=== PATIENT | male | born 1970 | race Caucasian/White ===

== ENCOUNTER 2020-03-28 21:00 | Emergency (ER) | payer OTHER ==
[2020-03-28 21:08] VITALS: TEMP 97.8; BMI 36.0
[2020-03-28] MEDS ORDERED: ACETAMINOPHEN 325 MG TABLET (FP) PO ONE (22:20)
--- NOTE | 2020-03-28 22:20 | PDOC ---
History of Present Illness - General Chief Complaint: Blood Pressure Problem Stated Complaint: LT KNEE PAIN/ BP prob Time Seen by Provider: 03/28/20 21:25 History Source: Patient Exam Limitations: No Limitations - History of Present Illness Initial Comments: 03/28/20 22:19 50M PMH gout presenting with atraumatic left knee pain x1 week. Has been worsening. pain especially of the lateral aspect of the knee. no bites, f/c. Pt denies strenuous activity or abnormal movements of the leg. he states this pain is similar to a prior episode of gout but lasting longer. 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 States high BP at triage but is currently asymptomatic; denies headache, vision/hearing changes, numbness, tingling, weakness, cp/sob, n/v/d, abd pain. NKA; poor medical f/u. accompanied by Past History - Medical History Allergies/Adverse Reactions: Allergies Allergy/AdvReac Type Severity Reaction Status Date / Time No Known Allergies Allergy Verified 03/28/20 22:41 COPD: No - Psycho-Social/Smoking History Smoking History: Never smoked - Substance Abuse Hx (Audit-C & DAST Scrn) How often the patient has a drink containing alcohol: Monthly or less Number of drinks the patient has on a typical day: 1 or 2 How often the patient has six or more drinks on one occasion: Less than monthly Score: In Men: 4 or > Positive; In Women: 3 or > Positive: 2 Screen Result (Pos requires Nsg. Audit-10AR): Negative In the last yr the pt used illegal drug/Rx for NonMed reason: No Score: Yes response is considered Positive: 0 Screen Result (Positive result requires Nsg. DAST-10): Negative Review of Systems - Review of Systems Comments:: 03/29/20 02:12 CONSTITUTIONAL: Denies F / C HEENT: Denies headache, lightheadedness, dizziness, changes in vision / hearing, sore throat, rhinorrhea RESP: Denies SOB, cough CARD: Denies chest pain, palpitations GI: Denies N / V / D, abdominal pain, inability to tolerate PO : Denies dysuria, hematuria, frequency NEURO: Denies numbness, tingling, weakness MSK: + left knee pain SKIN: Denies rashes *Physical Exam - Vital Signs Last Vital Signs Temp Pulse Resp BP Pulse Ox 97.8 F 99 H 19 150/107 H 99 03/28/20 21:04 03/28/20 21:04 03/28/20 21:04 03/28/20 21:04 03/28/20 21:04 - Physical Exam 03/29/20 02:12 GEN: nontoxic appearing in moderate pain. AAOx3. HEENT: NC/AT, EOMI, PERRL. No facial asymmetry. Normal voice. Supple neck w/ FROM. CV: S1/S2, RRR, no m/r/g LUNG: CTAB, no wheezes, crackles, rales, rhonchi. GI: Soft, ndnt, +BS, no guarding, no rebound. No masses. MSK: swollen left knee, no obvious effusions, nonerythematous. TTP of the lateral aspect of the knee. ROM limited 2/2 pain. SKIN: Warm, dry, no rashes appreciated. PSYCH: Normal mood and affect. NEURO: Moving all extremities. ambulates w/ cane. 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 swollen but nonerythematous left knee, no effusions on exam. DDX includes gout, bursitis, arthritis. - hypertensive on triage but asymptomatic, likely undiagnosed HTN. Discussed importance of outpatient follow up for proper BP management; will refer to [facility]. - XR Knee - US knee - consider joint aspiration - pain control 03/28/20 23:55 XR image reviewed demonstrating arthritic changes of the patella but o/w no obvious effusions POCUS of the knee demonstrated no significant drainage fluid pockets Will DC home w/ MSK care, Ortho referral, and PCP referral. Return precautions provided. Discharge - Discharge Information Problems reviewed: Yes Clinical Impression/Diagnosis: Knee pain Condition: Stable Disposition: HOME - Admission No - Follow up/Referral Referrals: Uriel Pearson MD [Primary Care Provider] - [facility] [place] [Provider Group] Montes,Domenic A, DO [Staff Physician] - - Patient Discharge Instructions Patient Printed Discharge Instructions: DI for Knee Pain Additional Instructions: Take tylenol and ibuprofen (e.g. Motrin) for pain as directed by the label. Additionally, use the RICE method to help alleviate the pain: Rest Ice the affected area, 20 minutes on and 20 minutes off. Compress (warm/cold compresses) Elevate the affected area Avoid putting direct pressure onto your knee for the next 3 weeks. Your x-ray shows arthritic changes. Follow up with Orthopedic Surgery in the next 14 days. We referred you to Dr. Montes, call and schedule an appointment at the number attached. Follow up with your primary care doctor regarding this visit in the next 10-14 days. We are referring you to the [facility] for primary care. Call the number to schedule an appointment. Immediately return to the nearest Emergency Department if you experience worsening symptoms or if you develop new or concerning symptoms, including but not limited to: - fevers - spreading redness - anything that concerns you [place] tylenol e ibuprofeno (por ejemplo, Motrin) para el dolor segn las indicaciones de la etiqueta. Adems, use el mtodo RICE para ayudar a aliviar el dolor: [place] Aplica hielo en la adis afectada donte 20 minutos y luego de 20 minutos de descanso. Comprimir (compresas fras / calientes) Elevar la adis afectada Evite ejercer presin directa sobre abreu rodilla donte las prximas 3 semanas. Abreu radiografa muestra cambios artrticos. Horace un seguimiento con [facility] en los prximos [address] Mnotes, llame y programe hector leonie al nmero adjunto. Horace un seguimiento con abreu mdico de atencin primaria con respecto a esta visita en los prximos 10 a 14 still. Lo estamos refiriendo al [facility] para atencin primaria. Llame al nmero para programar hector leonie. Regrese inmediatamente al Departamento de Emergencias ms cercano si experimenta un empeoramiento de los sntomas o si presenta sntomas nuevos o preocupantes, que incluyen, entre otros: - fiebres - enrojecimiento extendido - cualquier cosa que te preocupe - Post Discharge Activity
--- NOTE | 2020-03-28 22:39 | PDOC ---
Attending Attestation - Resident Resident Name: Nicholas Ramirez - ED Attending Attestation I have performed the following: I have examined & evaluated the patient, The case was reviewed & discussed with the resident, I agree w/resident's findings & plan, Exceptions are as noted - HPI HPI: 03/29/20 03:49 See resident HPI - Physicial Exam PE: 03/29/20 03:49 Agree with documented exam - Medical Decision Making 03/29/20 03:49 Atraumatic unilateral knee px/swelling bursitis? gout? arthritis? less likely infectious analgesia f/u xr pocus knee dispo per clinical course, aspiration if indicated Discharge - Discharge Information Problems reviewed: Yes Clinical Impression/Diagnosis: Knee pain Condition: Stable Disposition: HOME - Follow up/Referral Referrals: [facility] [place] [Provider Group] Domenic Montes DO [Staff Physician] - Uriel Pearson MD [Primary Care Provider] - - Patient Discharge Instructions Patient Printed Discharge Instructions: DI for Knee Pain Additional Instructions: Take tylenol and ibuprofen (e.g. Motrin) for pain as directed by the label. Additionally, use the RICE method to help alleviate the pain: Rest Ice the affected area, 20 minutes on and 20 minutes off. Compress (warm/cold compresses) Elevate the affected area Avoid putting direct pressure onto your knee for the next 3 weeks. Your x-ray shows arthritic changes. Follow up with Orthopedic Surgery in the next 14 days. We referred you to Dr. Montes, call and schedule an appointment at the number attached. Follow up with your primary care doctor regarding this visit in the next 10-14 days. We are referring you to the [facility] for primary care. Call the number to schedule an appointment. Immediately return to the nearest Emergency Department if you experience worsening symptoms or if you develop new or concerning symptoms, including but not limited to: - fevers - spreading redness - anything that concerns you [place] tylenol e ibuprofeno (por ejemplo, Motrin) para el dolor segn las indicaciones de la etiqueta. Adems, use el mtodo RICE para ayudar a aliviar el dolor: [place] Aplica hielo en la adis afectada donte 20 minutos y luego de 20 minutos de descanso. Comprimir (compresas fras / calientes) Elevar la adis afectada Evite ejercer presin directa sobre abreu rodilla donte las prximas 3 semanas. Abreu radiografa muestra cambios artrticos. [place] un seguimiento con [facility] en los prximos [address] Montes, dayanaraame y programe hector leonie al nmero adjunto. Horace un seguimiento con abreu mdico de atencin primaria con respecto a esta visita en los prximos 10 a 14 still. Lo estamos refiriendo al [facility] para atencin primaria. Llame al prero para programar hector leonie. Regrese inmediatamente al Departamento de Emergencias ms cercano si experimenta un empeoramiento de los sntomas o si presenta sntomas nuevos o preocupantes, que incluyen, entre otros: - fiebres - enrojecimiento extendido - cualquier cosa que te preocupe - Post Discharge Activity
[2020-03-28] MEDS ORDERED: ACETAMINOPHEN 325 MG TABLET (FP) ONE (22:42)
[2020-03-28 23:41] VITALS: BP 138/97; PULSE 90
== END 2020-03-29 00:15 | disposition home or self-care (01) ==
LOC: JER 21:00
DX: M25.561 Pain in right knee (principal)
CPT/HCPCS: 73562-TC-LT-FY; 99283-25